=== PATIENT | male | born 1995 | race Caucasian/White ===

== ENCOUNTER 2020-02-29 09:00 | Outpatient (RCR) | payer SELFPAY ==
[2017-04-07 13:34] VITALS: BMI 31.5
== END 2020-03-10 23:59 ==
LOC: EMPH 09:00
PROVIDERS: Visit Provider Family Medicine Geriatric Medicine
DX: Z03.818 Encounter for observation for suspected exposure to other biological agents ruled out (principal)
CPT/HCPCS: 87426

== ENCOUNTER 2020-05-09 17:46 | Emergency (ER) | payer SELFPAY ==
[2020-05-09 17:46] VITALS: BP 125/68; PULSE 89; PULSE 91; RESP 16; TEMP 36.2; O2SAT 97; BMI 32.7
--- NOTE | 2020-05-09 18:03 | ED.DCSUM_ITS ---
History of Present Illness Chief Complaint: Back Informant: Patient Narrative: 24-year-old male states that on Thursday he began to have a low back ache. By Thursday he started having some discomfort going down the back of his left leg. Throughout the week it slowly gotten better until today when he notes a pain going down the right leg now posteriorly wrapping anteriorly on the knee and down onto the proximal leg. He states he has some paresthesias there. No bowel or bladder dysfunction. No fevers or rashes. No IV drug use. He notes no known trauma. No prolonged steroid use. No recent back injections or surgery. Past Medical History - Allergies and Home Meds Allergies/Adverse Reactions: Allergies No Known Allergies Allergy (Verified 04/07/17 13:33) Primary Care Physician: Melly Esquivel MD [STAFF PHYSICIAN] - (call for follow up and primary care) Tani Valladares DO [STAFF PHYSICIAN] - (if you wish to follow up with a spinal surgeon) Past Medical History: None Surgical History: noncontributory Smoking Status: Current every day smoker Review of Systems General: Denies: Chills, Fever, Sweats Eyes: Denies: Visual changes - bilaterally, Diplopia ENT: Denies: Rhinorrhea, Sore throat Cardiovascular: Denies: Chest pain, Palpitations Respiratory: Denies: Dyspnea, Cough, Dyspnea on exertion Gastrointestinal: Denies: Abdominal pain, Nausea, Vomiting, Diarrhea, Melena, Hematochezia Genitourinary: Denies: Dysuria, Hematuria, Frequency Musculoskeletal: Reports: Back pain, Extremity Pain Skin: Denies: Rash, Wounds Neurological: Reports: Parasthesia. Denies: Headache, Weakness, Numbness Physical Exam Vital Signs/Narrative: Vital Signs Temp Pulse Resp BP Pulse Ox 05/09/20 17:46 97.2 F L 91 16 125/68 H 97 Inital Vital Signs reviewed: Yes General: Well nourished, Well developed, No Acute Distress Head: Normocephalic, Atraumatic Eyes: Perrl, EOMI ENT: Moist mucous membranes, No rhinorrhea Neck: Supple, Nontender Cardiovascular: Regular rate, Regular rhythm, No murmurs Respiratory: No distress, CTA bilaterally, Chest nontender Abdomen: Soft, Nontender, Nondistended, Normal bowel sounds Back: - - Patient has right-sided paraspinal lumbar tenderness to palpation. He has tissue texture changes consistent with muscular spasm. No pain over the buttocks/piriformis notch. Negative straight leg test. Extremities: Nontender, No edema Skin: Normal color, No rash Neurological: Alert, Oriented x3, Cranial nerves II-XII grossly intact, Normal Strength, Normal Sensation Psychological: Normal affect, Normal Mood Diagnostic/Tx/Re-eval Clinical Impression(s) from Imaging Studies Lumbar Spine X-Ray 05/09/20 18:07 IMPRESSION: Normal x-ray examination of the lumbar spine. Electronically Signed: Endy Sandoval MD at 18:23 EST , Service support , - Medical Decision Making My interpretation of the 3 view lumbar spine films are negative for acute proce ss. Later radiology concurs. Patient received a dose of Toradol, prednisone. He is driving so I withheld muscle relaxant. Patient be discharged home. I do not see any red flags at the current time that would warrant emergent MRI or neurosurgical evaluation. Patient should schedule outpatient follow-up. Return if worsening or concerns. ED Disposition - Plan for ED Patient: Disposition: Home or Assisted Living Diagnosis: Lumbar radiculopathy, acute Instructions: ED Sciatica Prescriptions: Prednisone [Deltasone] 60 mg PO DAILY 4 Days #12 tab Prescription Printed Ibuprofen [Motrin] 800 mg PO TID PRN PRN #20 tab PRN Reason: pain Prescription Printed Oxycodone HCl/Acetaminophen [Percocet 5/325] 1 tab PO Q6H PRN PRN 3 Days #12 tab PRN Reason: Pain Prescription Printed Diazepam [Valium] 5 mg PO Q8 PRN #15 tab PRN Reason: Muscle Spasm Prescription Printed Referrals: Melly Esquivel MD [STAFF PHYSICIAN] - (call for follow up and primary care) Tani Valladares DO [STAFF PHYSICIAN] - (if you wish to follow up with a spinal surgeon)
--- NOTE | 2020-05-09 18:07 | RAD_ITS ---
STUDY: X-RAY - LUMBAR SPINE REASON FOR EXAM: Male, 24 years old. LOW BACK PAIN X 1 WEEK THAT TRAVELS DOWN RIGHT LEG. TECHNIQUE: 3 view(s) of the lumbar spine were obtained. COMPARISON: None FINDINGS: Normal lumbar lordosis. There is no substantial scoliosis. There is a normal alignment of the vertebrae. Normal vertebral bodies and endplates. Normal disc space heights. The soft tissue structures are unremarkable. RAD/Lumbar Spine 2 or 3 Views IMPRESSION: Normal x-ray examination of the lumbar spine. Electronically Signed: Endy Sandoval MD at 18:23 EST , Service support ,
[2020-05-09] MEDS: Ketorolac 60 MG/2 ML Vial IM (18:16)
[2020-05-09] MEDS: predniSONE 20 MG Tablet 60 MG PO (18:16)
== END 2020-05-09 18:42 | disposition home or self-care (01) ==
LOC: ED 18:39
PROVIDERS: Emergency Provider Emergency Medicine
DX: M54.16 Radiculopathy, lumbar region (principal); F17.200 Nicotine dependence, unspecified, uncomplicated
CPT/HCPCS: 72100; 96372; 99281